=== PATIENT | male | born 1975 | race Hispanic/Latino ===

== ENCOUNTER 2024-11-28 17:16 | Emergency (ER) | payer SELFPAY ==
[2024-11-28] MEDS ORDERED: Nitroglycerin 0.4 MG TAB 1 EACH ONE (18:09)
[2024-11-28] MEDS ORDERED: Aspirin Chewable 81 MG TAB ONE (18:09)
[2024-11-28 18:11] LABS: Hematocrit 39.8 % (42.0-52.0); Hemoglobin 14.7 g/dL (14.0-18.0); Mean Corpuscular Hemoglobin 29.0 pg (27.0-31.0); Mean Corpuscular Volume 78.3 fl (78.0-98.0); Platelet Count 220 10x3/uL (130-400); Red Blood Cell (RBC) Count 5.08 mill/uL (4.70-6.10); White Blood Cell (WBC) Count 5.7 10x3/uL (4.8-10.8)
[2024-11-28 18:20] LABS: ALT (SGPT) 19 U/L (Less than 45); AST (SGOT) 28 U/L (11-34); Albumin 3.9 g/dL (3.1-4.5); Alkaline Phosphatase 178 U/L (40-110); Anion Gap 14 mmol/L (10-20); BUN (Urea Nitrogen) 11 mg/dL (8.9-20.6); Bilirubin, Total 0.4 mg/dL (0.3-1.2); Calc. Creatinine Clearance 0 mL/min (70-130); Calcium 8.6 mg/dL (7.8-10.44); Carbon Dioxide 22 mmol/L (22-29); Chloride 106 mmol/L (98-107); Globulin 3.2 g/dL (2.4-3.5); Glucose 92 mg/dL (70-105); Potassium 3.8 mmol/L (3.5-5.1); Sodium 138 mmol/L (136-145)
[2024-11-28 18:24] LABS: Troponin I Less than 0.010 ng/mL (< 0.028)
[2024-11-28 18:34] LABS: MDiff Complete? YES
[2024-11-28] MEDS ORDERED: Acetaminophen 500 MG TAB ONE (19:14)
== END 2024-11-28 19:28 | disposition home or self-care (01) ==
LOC: BURERS 17:16
DX: R07.89 Other chest pain (principal); R94.6 Abnormal results of thyroid function studies
CPT/HCPCS: 71046; 80053; 83880; 84443; 84484; 85025; 85379; 93005; 94760